=== PATIENT | male | born 1995 | race Caucasian/White ===

== ENCOUNTER 2018-05-13 18:27 | Inpatient (IN) | payer OTHER ==
[~2018-05-13] VITALS: Ht 175.3 cm; Wt 76.7 kg
[2018-05-13] MEDS: metroNIDAZOLE 500 MG/NS PREMIX 100 ML IV SCH ×4 (13:00→23:00)
[2018-05-13 19:07] VITALS: BP 122/67
[2018-05-13 19:32] LABS: BASOPHILS % (AUTO) 0.4 % (0.0-2.0); EOSINOPHILS # (AUTO) 0.1 K/uL (0-0.4); EOSINOPHILS % (AUTO) 0.8 % (0.0-4.0); HEMATOCRIT 46.2 % (36-52); HEMOGLOBIN 15.7 g/dL (12.0-18.0); LYMPHOCYTES # (AUTO) 2.6 K/uL (2.0-11.5); LYMPHOCYTES % (AUTO) 24.9 % (20.5-51.1); MEAN CORPUSCULAR HEMOGLOBIN 30 pg (27-31); MEAN CORPUSCULAR HGB CONC 34 g/dL (33-37); MEAN CORPUSCULAR VOLUME 87.8 fL (80-94); MONOCYTES % (AUTO) 9.4 % (1.7-9.3); NEUTROPHILS # (AUTO) 6.8 K/uL (1.8-7.7); NEUTROPHILS % (AUTO) 64.5 % (42.2-75.2); PLATELET COUNT (AUTO) 301 K/uL (140-450); RED BLOOD CELL COUNT(AUTO) 5.26 MIL/uL (4.20-6.10); RED CELL DISTRIBUTION WIDTH 13.4 % (11.6-13.7); WHITE BLOOD COUNT (AUTO) 10.6 K/uL (4.8-10.8)
--- NOTE | 2018-05-13 20:16 | NUR ---
Patient ambulated to bed 6. RN evaluating patient at bedside.
--- NOTE | 2018-05-13 20:18 | NUR ---
23 YO MALE COMES TO ER FOR C/O RLQ PAIN. PT STATES IT IS DULL 8/10. PT HAS OCCASSIONAL NAUSEA THROUGHOUT DAY. PT AAOX4, SITTING UP IN GURNEY, DENIES FEVER CHILLS. LUNGS EVEN CLEAR UNLABORED. ABD SOFT NON DISTENDED. RLQ TENDER TO TOUCH. SKIN WARM DRY INTACT. NO ACUTE DISTRESS. VSS. GURNEY LOCKED IN LOWEST POSITION. ERMD TO SEE PT.
--- NOTE | 2018-05-13 20:30 | NUR ---
Dr. Shields evaluating patient at bedside.
[2018-05-13 20:40] LABS: APPEARANCE,URINE CLEAR (CLEAR); BILIRUBIN,URINE 1+ (NEGATIVE); BLOOD, URINE TRACE-I (NEGATIVE); COLOR,URINE YELLOW (YELLOW); LEUKOCYTE ESTERASE ,URINE NEGATIVE (NEGATIVE); NITRITE, URINE NEGATIVE (NEGATIVE); PH,URINE 6.5 (5.0-9.0); UGLUCOSE NEGATIVE (NEGATIVE)
[2018-05-13 21:37] LABS: CARBON DIOXIDE 29.9 mmol/L (21-32)
[2018-05-13 21:38] LABS: ANION GAP 12.9 (8-16); CREATININE 1.1 mg/dL (0.7-1.3); POTASSIUM 3.8 mmol/L (3.5-5.1)
[2018-05-13 21:39] LABS: TOTAL BILIRUBIN 0.4 mg/dL (0.0-1.0)
[2018-05-13] MEDS ORDERED: ONDANSETRON 4 MG/2 ML VIAL IVP PRN (22:20)
[2018-05-13] MEDS ORDERED: KETOROLAC 30 MG/ML VIAL IVP PRN (22:20)
--- NOTE | 2018-05-13 22:45 | NUR ---
Patient will be admitted to care of DR. ELIZONDO. Admited to [facility] [[email or web address] Will go to [id number]. Belongings list completed. Report to SLADE STAHL.
[2018-05-13 23:00] VITALS: BP 131/51
--- NOTE | 2018-05-13 23:00 | NUR ---
PT ARRIVED VIA GURNEY TO UNIT AND AMBULATED SELF TO BED-STEADY. AOX4, ON ROOM AIR WITH LEFT FA #20G. FAMILY AT BEDSIDE. DISCUSSED PLAN OF CARE AND PT VERBALIZED UNDERSTANDING. ORIENTED TO BEDROOM, CALL LIGHT AND BATHROOM. VITAL SIGNS TAKEN AND TOLERATED WELL. MRSA NARES SWAB COLLECTED. BED IN LOWEST POSITION, BED BREAKS ON, BOTH SIDE RAILS UP. BEDSIDE TABLE AND CALL LIGHT ARE WITHIN REACH. WILL CONTINUE TO MONITOR.
[2018-05-13] MEDS ORDERED: cefTRIAXone 1,000 MG VIAL ONE (23:18)
[2018-05-13] MEDS: DEXT 5% / NACL 0.45% 1,000 ML IV SCH (23:21)
--- NOTE | 2018-05-13 23:22 | NUR ---
SCHEDULED MEDICATION ROCEPHIN GIVEN AND TOLERATED WELL. NO S/S OF RESPIRATORY DISTRESS OR DISCOMFORT NOTED AT THIS TIME. WILL CONTINUE TO MONITOR.
[2018-05-14] MEDS: metroNIDAZOLE 500 MG/NS PREMIX 100 ML IV SCH ×4 (00:21→20:50)
--- NOTE | 2018-05-14 00:21 | NUR ---
SCHEDULED MEDICATION GIVEN AND TOLERATED WELL. NO S/S OF RESPIRATORY DISTRESS OR DISCOMFORT NOTED AT THIS TIME. WILL CONTINUE TO MONITOR.
--- NOTE | 2018-05-14 02:00 | NUR ---
PT SLEEPING IN BED. NO S/S OF RESPIRATORY DISTRESS OR DISCOMFORT NOTED AT THIS TIME. WILL CONTINUE TO MONITOR.
--- NOTE | 2018-05-14 04:00 | NUR ---
PT CONTINUES TO SLEEP IN BED. NO S/S OF RESPIRATORY DISTRESS OR DISCOMFORT NOTED AT THIS TIME. WILL CONTINUE TO MONITOR.
--- NOTE | 2018-05-14 05:10 | NUR ---
SPOKE WITH PHARMACY MADIE REGARDING FLAGYL ORDER FOR 05/13 @ 0500, 1300 AND 2100. FLAGYL TIME ORDER CHANGED DUE TO BEING SCHEDULED ONE DAY BEFORE PT WAS ADMITTED TO UNIT. NEW TIME ORDER WAS PLACED TO READ FLAGYL 05/14 @ 0500, 1300, AND 2100. CHARGE NURSE LOIS STUBBS.
--- NOTE | 2018-05-14 05:16 | NUR ---
SCHEDULED MEDICATION FLAGYL GIVEN AND TOLERATED WELL. NO S/S OF RESPIRATORY DISTRESS OR DISCOMFORT NOTED AT THIS TIME. WILL CONTINUE TO MONITOR.
--- NOTE | 2018-05-14 06:54 | NUR ---
PT SLEEPING IN BED. NO S/S OF RESPIRATORY DISTRESS OR DISCOMFORT NOTED AT THIS TIME. WILL CONTINUE TO MONITOR.
--- NOTE | 2018-05-14 07:19 | NUR ---
ENDORSED PT CARE TO DAY SHIFT NURSE SMOOTH FOR CONTINUITY OF CARE.
--- NOTE | 2018-05-14 07:20 | NUR ---
RECEIVED REPORT FROM FLUID DESIGNER NURSE. PT IN STABLE CONDITION. RESPIRATIONS EVEN AND UNLABORED. IV INTACT AND PATENT. SAFETY MEASURES IN PLACE. BED IN LOW POSITION. CALL LIGHT AT BEDSIDE. WILL CONTINUE TO MONITOR.
[2018-05-14 07:39] LABS: ANION GAP 14.5 (8-16); CARBON DIOXIDE 28.3 mmol/L (21-32); POTASSIUM 3.8 mmol/L (3.5-5.1)
--- NOTE | 2018-05-14 07:54 | NUR ---
PATIENT HAS BEEN SCREENED AND CATEGORIZED LOW NUTRITION RISK. PATIENT WILL BE SEEN WITHIN 7 DAYS OF ADMISSION. 05/20/[address]
[2018-05-14 08:00] VITALS: BP 126/59
--- NOTE | 2018-05-14 08:00 | NUR ---
PT OFF UNIT TO SURGERY FOR APPENDECTOMY. PT IN STABLE CONDITION
[2018-05-14] MEDS ORDERED: SUCCINYLCHOLINE CHLORIDE 200 MG/10 ML VIAL IVP ONE (08:07)
[2018-05-14] MEDS ORDERED: DEXAMETHASONE 4 MG/ML VIAL ONE (08:07)
[2018-05-14] MEDS ORDERED: GLYCOPYRROLATE 0.2 MG/ML VIAL ONE (08:07)
[2018-05-14] MEDS ORDERED: PROPOFOL 200 MG/20 ML VIAL IV ONE (08:07)
[2018-05-14] MEDS ORDERED: ROCURONIUM 50 MG/5 ML VIAL IV ONE (08:07)
[2018-05-14] MEDS ORDERED: NEOSTIGMINE 1:1000 10 MG/10 ML VIAL ONE (08:07)
[2018-05-14] MEDS ORDERED: ONDANSETRON 4 MG/2 ML VIAL ONE (08:07)
[2018-05-14] MEDS ORDERED: KETOROLAC 30 MG/ML VIAL ONE (08:07)
[2018-05-14] MEDS ORDERED: DESFLURANE 240 ML BTL INH ONE (08:07)
[2018-05-14] MEDS ORDERED: BUPIVACAINE-MPF 0.25% 30 ML VIAL INJ ONE (08:12)
[2018-05-14] MEDS ORDERED: fentaNYL 0.05 MG/ML VIAL ONE (08:18)
[2018-05-14] MEDS ORDERED: HYDROmorphone PFS 2 MG/ML SYR ONE ×2 (08:18→09:40)
[2018-05-14] MEDS: DEXT 5% / NACL 0.45% 1,000 ML IV SCH ×3 (08:20→23:35)
[2018-05-14] MEDS ORDERED: HYDROmorphone 1 MG/ML AMP IVP PRN (08:35)
[2018-05-14] MEDS ORDERED: ONDANSETRON 4 MG/2 ML VIAL IVP PRN (08:35)
[2018-05-14 08:36] LABS: PROTHROMBIN TIME 10.4 secs (10.8-13.4)
--- NOTE | 2018-05-14 09:52 | NUR ---
PT BACK ON UNIT FROM APPENDECTOMY SURGERY IN STABLE CONDITION. WILL CONTINUE TO MONITOR.
--- NOTE | 2018-05-14 12:15 | NUR ---
PT LYING IN BED IN STABLE CONDITION. FAMILY AT BEDSIDE. WILL CONTINUE TO MONITOR. BED IN LOW POSITION. CALL LIGHT AT BEDSIDE.
[2018-05-14 14:08] LABS: BASOPHILS % (AUTO) 0.5 % (0.0-2.0); EOSINOPHILS # (AUTO) 0.1 K/uL (0-0.4); EOSINOPHILS % (AUTO) 1.2 % (0.0-4.0); HEMATOCRIT 44.6 % (36-52); HEMOGLOBIN 14.9 g/dL (12.0-18.0); LYMPHOCYTES % (AUTO) 31.7 % (20.5-51.1); MEAN CORPUSCULAR HEMOGLOBIN 30 pg (27-31); MEAN CORPUSCULAR HGB CONC 34 g/dL (33-37); MONOCYTES % (AUTO) 10.2 % (1.7-9.3); NEUTROPHILS # (AUTO) 5.3 K/uL (1.8-7.7); NEUTROPHILS % (AUTO) 56.4 % (42.2-75.2); PLATELET COUNT (AUTO) 280 K/uL (140-450); RED BLOOD CELL COUNT(AUTO) 5.01 MIL/uL (4.20-6.10); RED CELL DISTRIBUTION WIDTH 13.3 % (11.6-13.7); WHITE BLOOD COUNT (AUTO) 9.4 K/uL (4.8-10.8)
--- NOTE | 2018-05-14 14:25 | NUR ---
PY LYING IN BED SLEEPING AT THIS TIME. RESPIRATIONS EVEN AND UNLABORED. WILL CONTINUE TO MONITOR. BED IN LOW POSITION. CALL LIGHT AT BEDSIDE.
--- NOTE | 2018-05-14 16:20 | NUR ---
ASSISTED PT TO BATHROOM. PT TOLERATED WELL. WILL CONTINUE TO MONITOR. BED IN LOW POSITION. CALL LIGHT AT BEDSIDE.
--- NOTE | 2018-05-14 17:50 | NUR ---
PT WALKED AROUND MST IN STABLE CONDITION. PT TOLERATED WELL. WILL CONTINUE TO MONITOR.
--- NOTE | 2018-05-14 19:17 | NUR ---
GAVE REPORT TO SLADE STRIPPER MACHINE OPERATOR NURSE FOR CONTINUITY OF CARE. PT IN STABLE CONDITION.
--- NOTE | 2018-05-14 19:18 | NUR ---
RECEIVED REPORT FROM DAY SHIFT NURSE RAEGAN-MARIBETH AT BEDSIDE. PT RESTING IN BED WITH FAMILY AT BEDSIDE. AOX4, ON ROOM AIR WITH LEFT FA #20G RUNNING D5-NS 0.45 @100ML/HR. S/P LAPAROSCOPIC APPENDECTOMY- 3 INCISIONS WITH STERI-STRIPS ON ABD. DISCUSSED PLAN OF CARE AND PT VERBALIZED UNDERSTANDING. NO S/S OF RESPIRATORY DISTRESS OR DISCOMFORT NOTED AT THIS TIME. BED IN LOWEST POSITION, BED BREAKS ON, BOTH SIDE RAILS UP. BEDSIDE TABLE AND CALL LIGHT ARE WITHIN REACH. WILL CONTINUE TO MONITOR.
[2018-05-14 20:00] VITALS: BP 105/58
--- NOTE | 2018-05-14 20:00 | NUR ---
VITAL SIGNS TAKEN AND TOLERATED WELL. PT C/O 5/10 PAIN BUT STATED IT IS WITHIN TOLERABLE LEVEL AT THIS TIME. NO S/S OF RESPIRATORY DISTRESS OR DISCOMFORT NOTED AT THIS TIME. WILL CONTINUE TO MONITOR.
--- NOTE | 2018-05-14 20:00 | NUR ---
PT AMBULATING AROUND UNIT WITH FAMILY AT HIS SIDE. PT TOLERATING WELL. NO S/S OF RESPIRATORY DISTRESS OR DISCOMFORT NOTED AT THIS TIME. WILL CONTINUE TO MONITOR.
--- NOTE | 2018-05-14 20:07 | NUR ---
SCHEDULED MEDICATION ROCEPHIN GIVEN AND TOLERATED WELL. NO S/S OF RESPIRATORY DISTRESS OR DISCOMFORT NOTED AT THIS TIME. WILL CONTINUE TO MONITOR.
--- NOTE | 2018-05-14 20:50 | NUR ---
SCHEDULED MEDICATION FLAGYL GIVEN AND TOLERATED WELL. NO S/S OF RESPIRATORY DISTRESS OR DISCOMFORT NOTED AT THIS TIME. WILL CONTINUE TO MONITOR.
--- NOTE | 2018-05-14 23:00 | NUR ---
PT SLEEPING IN BED. NO S/S OF RESPIRATORY DISTRESS OR DISCOMFORT NOTED AT THIS TIME. WILL CONTINUE TO MONITOR.
[2018-05-15] VITALS: BP 99/39
--- NOTE | 2018-05-15 | NUR ---
VITAL SIGNS TAKEN AND TOLERATED WELL. NO S/S OF RESPIRATORY DISTRESS OR DISCOMFORT NOTED AT THIS TIME. WILL CONTINUE TO MONITOR.
--- NOTE | 2018-05-15 02:00 | NUR ---
PT CONTINUES TO SLEEP AT THIS TIME. NO S/S OF RESPIRATORY DISTRESS OR DISCOMFORT NOTED AT THIS TIME. WILL CONTINUE TO MONITOR.
[2018-05-15] MEDS: metroNIDAZOLE 500 MG/NS PREMIX 100 ML IV SCH (04:16)
--- NOTE | 2018-05-15 04:16 | NUR ---
SCHEDULED MEDICATION FLAGYL GIVEN AND TOLERATED WELL. NO S/S OF RESPIRATORY DISTRESS OR DISCOMFORT NOTED AT THIS TIME. WILL CONTINUE TO MONITOR.
--- NOTE | 2018-05-15 06:00 | NUR ---
PT RESTING IN BED. NO S/S OF RESPIRATORY DISTRESS OR DISCOMFORT NOTED AT THIS TIME. WILL CONTINUE TO MONITOR.
--- NOTE | 2018-05-15 07:14 | NUR ---
ENDORSED TO DAY SHIFT NURSE SIGRID-RN FOR CONTINUITY OF CARE
--- NOTE | 2018-05-15 07:15 | NUR ---
RECEIVED BEDSIDE REPORT FROM COAL BRIQUETTE MACHINE OPERATOR NURSE. PATIENT IS AWAKE, ALERT AND ORIENTEDX4. NO SIGNS OF DISTRESS ON RA. SKIN HAS 4 ABDOMINAL SURGICAL WOUNDS S/P LAP APPY. WOUNDS HAVE STERI STRIPS, CLEAN, DRY AND INTACT. IV ON L FA 20G INFUSING D5 1/2NS AT 100. CLEAN, DRY AND INTACT. PATIENT IS AMBULATORY. PATIENT IS CONTINENT. BED IN LOW POSITION. CALL LIGHT WITHIN REACH. PATIENT ABLE TO MAKE NEEDS KNOWN.
[2018-05-15 07:24] LABS: BASOPHILS % (AUTO) 0.2 % (0.0-2.0); EOSINOPHILS # (AUTO) 0.1 K/uL (0-0.4); EOSINOPHILS % (AUTO) 0.7 % (0.0-4.0); LYMPHOCYTES # (AUTO) 3.7 K/uL (2.0-11.5); MEAN CORPUSCULAR HEMOGLOBIN 30 pg (27-31); MEAN CORPUSCULAR HGB CONC 33 g/dL (33-37); MEAN CORPUSCULAR VOLUME 88.8 fL (80-94); MONOCYTES # (AUTO) 1.2 K/uL (0.8-1.0); MONOCYTES % (AUTO) 9.9 % (1.7-9.3); NEUTROPHILS % (AUTO) 58.2 % (42.2-75.2); PLATELET COUNT (AUTO) 287 K/uL (140-450); RED BLOOD CELL COUNT(AUTO) 4.73 MIL/uL (4.20-6.10); RED CELL DISTRIBUTION WIDTH 13.2 % (11.6-13.7)
[2018-05-15 07:50] LABS: ANION GAP 13.3 (8-16); CARBON DIOXIDE 28.4 mmol/L (21-32); CREATININE 1.1 mg/dL (0.7-1.3); POTASSIUM 3.7 mmol/L (3.5-5.1)
[2018-05-15 08:00] VITALS: BP 112/52
--- NOTE | 2018-05-15 08:00 | NUR ---
PATIENT AMBULATING AROUND THE HALLS, GAIT IS STEADY. WILL CONTINUE TO MONITOR THE PATIENT
[2018-05-15] MEDS ORDERED: KETOROLAC 30 MG/ML VIAL IVP SCH (09:00)
--- NOTE | 2018-05-15 09:27 | NUR ---
ADMINISTERED [facility]. PATIENT TOLERATED WELL. EDUCATED ON SIDE EFFECTS. PATIENT AMBULATING AROUND THE HALLS NOW. MOM BY PATIENTS SIDE. PATIENT ASKING IF HE CAN LEAVE ALREADY WITHOUT PAIN MED PRESCRIPTION FROM DR RUSS. DR ELIZONDO SAID PATIENT CAN LEAVE ONCE DR RUSS COMES AND GIVES PATIENT PAIN MEDS. TOLD PATIENT I RECOMMEND HIM TO WAIT. HE SAID HE WILL WAIT FOR NOW. DR ELIZONDO SAID GIVE 30MG TORADOL IVP BEFORE DISCHARGE.
--- NOTE | 2018-05-15 10:59 | NUR ---
PATIENT CURRENTLY IN BED. NO SIGNS OF DISTRESS. PATIENT WAITING FOR PRESCRIPTIONS AND TO BE DISCHARGED. DR RUSS HER TO DO PAIN MED PRESCRIPTION
[2018-05-15] MEDS ORDERED: HYDR-5122 PO (11:25)
--- NOTE | 2018-05-15 11:41 | NUR ---
GAVE ONE TIME TORADOL DOSE BEFORE D/C ORDERED BY DR ELIZONDO. PATIENT TOLERATED WELL. EDUCATED ON SIDE EFFECTS. PATIENT VERBALIZED UNDERSTANDING
--- NOTE | 2018-05-15 12:10 | NUR ---
EDUCATED PATIENT ON DISEASE PROCESS, ABN/SX, WHEN TO GO TO THE ER, EDUCATED ON WOUND CARE, EDUCATED ON FOLLOW UP W DR ELIZONDO WITHIN 2 WEEKS AND TO MAKE AN APPOINTMENT, EDUCATED ON MEDS AND GAVE PRESCRIPTION. TOOK PHOTOS OF SURGICAL WOUNDS W STERISTRIPS STILL TO TENDER TO REMOVE. GAVE PATIENT NS AT GAUZE TO CLEAN IT AND PAT DRY. REMOVED IV, TIP INTACT. ID BANDS REMOVED. PATIENT LEFT IN STABLE CONDITION W MOM BY HIS SIDE. Addendum: 05/15/18 at 1350 by Fauzia Cochran RN EDUCATED ON REFUSAL OF FLU VACCINE. PNA NOT A CANDIDATE
--- NOTE | 2018-05-16 11:38 | NUR ---
CALLED DR. AMAYA DAVIS OFFICE, AND SPOKE WITH MYKEL. MADE A FOLLOW UP APPOINTMENT WITH DR. DAVIS FOR 05/21/18 AT 3:45P.M. ADDRESS [address] [place] [address] PHONE [phone]. CALLED DON JASON, AND GAVE HIM THE INFORMATION.
== END 2018-05-15 12:10 | disposition home or self-care (01) | DRG 234 ==
LOC: MED 18:27 → MTU 22:16
PROVIDERS: ADMIT Transplant Surgery; ATTEND Transplant Surgery
PROC: 0DTJ4ZZ Resection of Appendix, Percutaneous Endoscopic Approach (ICD-10-PCS; principal; 2018-05-14 08:00)
DX: K35.80 Unspecified acute appendicitis (principal)
CPT/HCPCS: 36415; 71045; 80048; 80053; 81003; 83690; 85025; 85610; 87081; 88304; 93005; 99285; J0330; J0696; J1100; J1170; J1885; J2405; J2704; J2710; J3010; J3490; J7030; J7060; J7120; Q0092